=== PATIENT | female | born 1945 | race Caucasian/White ===

== ENCOUNTER 2017-02-25 08:37 | Outpatient (CLI) | payer OTHER | END 2017-02-25 08:54 | disposition home or self-care (01) | LOC: LAB 08:37 | DX: E11.65 Type 2 diabetes mellitus with hyperglycemia (principal); M19.049 Primary osteoarthritis, unspecified hand; E03.8 Other specified hypothyroidism; E78.2 Mixed hyperlipidemia; D68.8 Other specified coagulation defects; D64.89 Other specified anemias ==

== ENCOUNTER 2017-02-25 08:49 | Outpatient (CLI) | payer OTHER | END 2017-02-25 08:54 | disposition home or self-care (01) | LOC: RAD 08:49 | DX: M19.041 Primary osteoarthritis, right hand (principal); M19.042 Primary osteoarthritis, left hand ==

== ENCOUNTER 2017-11-21 07:34 | Outpatient (CLI) | payer OTHER | END 2017-11-21 07:41 | disposition home or self-care (01) | LOC: LAB 07:34 → RAD 07:34 → LAB 07:41 | DX: E11.65 Type 2 diabetes mellitus with hyperglycemia (principal); D64.89 Other specified anemias; M19.049 Primary osteoarthritis, unspecified hand; E78.2 Mixed hyperlipidemia; D68.8 Other specified coagulation defects; E03.8 Other specified hypothyroidism; M19.041 Primary osteoarthritis, right hand; M19.042 Primary osteoarthritis, left hand ==

== ENCOUNTER 2018-05-21 07:24 | Outpatient (CLI) | payer OTHER | END 2018-05-21 15:41 | disposition home or self-care (01) | LOC: LAB 07:24 | DX: K52.89 Other specified noninfective gastroenteritis and colitis (principal); D64.89 Other specified anemias ==

== ENCOUNTER 2018-10-06 07:26 | Outpatient (CLI) | payer OTHER | END 2018-10-06 07:40 | disposition home or self-care (01) | LOC: LAB 07:26 | DX: E03.8 Other specified hypothyroidism (principal); D50.8 Other iron deficiency anemias; D51.8 Other vitamin B12 deficiency anemias; I10 Essential (primary) hypertension; D68.8 Other specified coagulation defects; D69.49 Other primary thrombocytopenia ==